=== PATIENT | female | born 1955 | race Caucasian/White ===

== ENCOUNTER → 2017-01-12 | Outpatient (CLI) | payer BC ==
[~2017-01-12] VITALS: Ht 160 cm; Wt 83.2 kg
[~2017-01-12] MED LIST: MULTIVITAMIN1 SGL PO; PROBIOTIC1 EAC1 PO
[2017-01-12 12:57] VITALS: BP 134/70
== END ==
LOC: AMSURD 12:41
DX: R07.9 Chest pain, unspecified (principal)

== ENCOUNTER → 2019-03-10 | Outpatient (CLI) | payer BC ==
[2017-01-12 12:57] VITALS: BP 134/70
[2019-03-10 11:21] LABS: CALCIUM 9.5 mg/dL (8.3-10.5)
[2019-03-10 11:32] LABS: D-DIMER 0.34 mg/L FEU (0.15-0.50)
== END ==
LOC: LAB 11:00
PROVIDERS: Family Medicine
DX: R06.02 Shortness of breath (principal)

== ENCOUNTER → 2021-05-30 | Outpatient (CLI) | payer BC | LOC: MAMMO 09:12 | DX: Z12.31 Encounter for screening mammogram for malignant neoplasm of breast (principal) ==

== ENCOUNTER → 2023-07-01 | Day surgery (SDC) | payer BC | END | disposition home or self-care (01) | LOC: MSO 09:07 | DX: Z12.11 Encounter for screening for malignant neoplasm of colon (principal) | CPT/HCPCS: 00812; J2704; J7120 ==

== ENCOUNTER → 2023-10-07 | Outpatient (CLI) | payer BC | LOC: RAD 11:28 | DX: M17.12 Unilateral primary osteoarthritis, left knee (principal); R05.2 Subacute cough ==

== ENCOUNTER → 2023-11-06 | Outpatient (CLI) | payer BC | LOC: RAD 07:56 | DX: M25.562 Pain in left knee (principal) ==

== ENCOUNTER → 2023-11-12 | Outpatient (CLI) | payer BC | LOC: RAD 08:08 | DX: M71.22 Synovial cyst of popliteal space [Baker], left knee (principal); S83.242A Other tear of medial meniscus, current injury, left knee, initial encounter; M22.42 Chondromalacia patellae, left knee ==